=== PATIENT | female | born 1955 | race Caucasian/White ===

== ENCOUNTER 2017-01-29 13:55 | Emergency (ER) | payer OTHER ==
[~2017-01-29 13:55] MED LIST: LORTAB 5/500 TA1 TA1 PO
== END 2017-01-29 15:07 | disposition home or self-care (01) ==
LOC: CFTX 13:55
DX: L02.811 Cutaneous abscess of head [any part, except face] (principal); L03.811 Cellulitis of head [any part, except face]; J44.9 Chronic obstructive pulmonary disease, unspecified; Z98.890 Other specified postprocedural states
CPT/HCPCS: 10060; 87070; 87077; 87186; 87205; 99283